=== PATIENT | male | born 1940 | race Caucasian/White ===

== ENCOUNTER 2017-04-12 00:27 | Day surgery (SDC) | payer MEDICARE, OTHER ==
[~2017-04-12] VITALS: Ht 182.9 cm; Wt 84.0 kg
[~2017-04-12 00:27] MED LIST: MULT1CAP33 PO
[2017-04-12] MEDS ORDERED: fentaNYL-PF 50 mCg/mL 2 mL Inj IVPUSH PRN (06:00)
[2017-04-12] MEDS ORDERED: 0.9% Sodium Chloride 1,000 ML IV SCH (06:00)
[2017-04-12] MEDS ORDERED: Sodium Chloride LOK Flush 10 mL Syringe IV PRN (06:00)
[2017-04-12 13:41] VITALS: BP 103/68; PULSE 71; RESP 16; O2SAT 99
[2017-04-12] MEDS ORDERED: TURM5000 MC (14:01)
[2017-04-12] MEDS ORDERED: LACT1CAP67 PO (14:01)
[2017-04-12] MEDS ORDERED: CHOL5000 PO (14:01)
[2017-04-12] MEDS ORDERED: ASCO500S2 PO (14:01)
[2017-04-12] MEDS ORDERED: CHON250C PO (14:01)
[2017-04-12] MEDS ORDERED: CYAN10008 PO (14:01)
[2017-04-12 15:22] VITALS: BP 121/73; PULSE 71; RESP 16; O2SAT 98
[2017-04-12 15:32] VITALS: BP 102/72; PULSE 66; RESP 16; O2SAT 98
[2017-04-12 15:42] VITALS: BP 116/64; PULSE 63; RESP 16; O2SAT 97
[2017-04-12 15:52] VITALS: BP 121/81; PULSE 69; RESP 16; O2SAT 98
--- NOTE | 2017-04-12 15:56 | ENDO ---
[address] [address] ENDOSCOPY PROCEDURE PATIENT: NOY RANDOLPH : 1940 MR#: [id number] ADMIT: 04/12/2017 JOB ID: [id number] DATE OF SERVICE: 04/12/2017 PRIMARY CARE PROVIDER: Jay Bhakta MD PROCEDURE: Esophagogastroduodenoscopy with biopsy and a flexible sigmoidoscopy (failed colonoscopy). INDICATIONS: A 76-year-old male with a history of GERD and diarrhea unexplained. He has a history of multiple adenomatous colon polyps and is way overdue for surveillance. I see the last colonoscopy in our system was [address] Duncan. EQUIPMENT: GIFH-180 and PCFH-180 AL SEDATION: 3 mg Versed, 75 mcg fentanyl. COMPLICATIONS: None identified. BOWEL PREPARATION: Distally quite adequate. PROCEDURE INFORMATION: After the risks and benefits were explained, written and verbal informed consent was obtained. The patient was brought into the endoscopy suite and placed into the left lateral decubitus position. Sedation was achieved as above. The scope was introduced into the mouth through the bite block, and advanced to the second portion of the duodenum. The scope was slowly withdrawn to carefully examine the mucosa for any defects or lesions. Retroflexed views were accomplished in the stomach. The stomach was decompressed. The scope removed from the patient who tolerated the procedure well. The patient was then turned around. A digital rectal examination accomplished. Mild internal hemorrhoids noted. No other significant pathology. The scope was introduced into the rectum and advanced under direct visualization to the level of the sigmoid. We got about 25 cm of scope introduced. The patient had an exceptionally sharp corner that could not be overcome in spite of multiple applications of patient pressure. We additionally tried the patient in the supine, prone and even in the right lateral decubitus position. We aborted based on the difficulties encountered at this depth simply to avoid unnecessary pressure on the wall and put the patient at risk for a perforation. The scope was withdrawn, the colon decompressed, the scope removed from the patient who tolerated all of this quite well. ENDOSCOPIC DIAGNOSES: 1. Duodenum: Visually normal from the bulb through to the second portion. Random biopsy was taken considering the reported history of diarrhea. 2. Stomach: No ulcers, no mass lesions. No outlet obstruction. There were a few benign diminutive gastric polyps. One of these was sampled for histopathology and exclusion of H. pylori. Otherwise, retroflexed views of the lower esophageal sphincter were unremarkable. 3. Esophagus: The squamocolumnar junction correlated with the top of the gastric folds. The gastroesophageal junction was at 42 cm from the incisors. No acute erosive changes, no strictures, no mass lesions. 4. Colon: Incredibly challenging navigation through the sigmoid. We could not pass the 25 cm stefanie. There was some diverticulosis evident. I did not appreciate any colitis or proctitis in the distal segment nor did I see any significant polyps or mass lesions through this area. IMPRESSION: 1. Diminutive gastric polyps. 2. Otherwise visually unremarkable esophagogastroduodenoscopy. 3. Diverticulosis. 4. Failed cecal navigation. RECOMMENDATIONS: 1. Await histopathology. 2. The patient is offered a virtual colonography to complete the colon cancer screening experience. If there are significant polyps encountered at virtual then the patient would likely need to be referred for a balloon assisted endoscopy down in [place].
--- NOTE | 2017-04-14 17:07 | PATH ---
SURGICAL PATHOLOGY Attending Physician:Estrada George CASE STATUS: Signed Out PATIENT NAME: NOY RANDOLPH PID: [id number] : 1940 DATE COLLECTED:04/12/2017 00:00 SPECIMEN: 1: Duodenum, Biopsy 2: Duodenum, Biopsy 3: Stomach, Polyp, Biopsy CLINICAL HISTORY: 1). DUODENUM BIOPSY 2). DUODENUM BULB BIOPSY 3). GASTRIC POLYP FINAL DIAGNOSIS: 1.DUODENUM, BIOPSY: DUODENAL MUCOSA WITH NO DIAGNOSTIC ABNORMALITY. Negative for active inflammation, features of sprue, dysplasia, and malignancy. 2.DUODENAL BULB, BIOPSY: DUODENAL MUCOSA WITH FOVEOLAR METAPLASIA. Negative for active inflammation, features of sprue, dysplasia, and malignancy. 3.GASTRIC POLYP, BIOPSY: FUNDIC GLAND POLYP. Negative for Helicobacter organisms. Negative for intestinal metaplasia. Negative for dysplasia and malignancy. ICD10 R19.7 GROSS DESCRIPTION: Received three formalin-filled containers, each labeled with the patient' s name. 1. Received in formalin, labeled with the patient' s name and "duodenum biopsy", is one fragment of calzada, soft tissue measuring 0.5 x 0.2 x 0.1 cm. The fragment is totally submitted in cassette 1A. 2. Received in formalin, labeled with the patient' s name and "duodenum bulb biopsy", is one fragment of calzada, soft tissue measuring 0.2 x 0.1 x 0.1 cm. The fragment is totally submitted in cassette 2A. 3. Received in formalin, labeled with the patient' s name and "gastric polyp", is one fragment of calzada, soft tissue measuring 0.3 x 0.2 x 0.2 cm. The fragment is totally submitted in cassette 3A. [id number]) MICRO DESCRIPTION: See diagnosis. ICD-9 CODES: CPT CODES: 1: 06238 2: 53459 3: 54159 Electronically Signed Out Tank Ng MD, Ph.D. [facility] [address], [place] [address] Technical component performed at [facility], [address], [address]
== END 2017-04-12 23:59 | disposition home or self-care (01) ==
LOC: END 00:27
PROVIDERS: ATTEND Internal Medicine Gastroenterology
DX: Z12.11 Encounter for screening for malignant neoplasm of colon (principal); Z86.010 Personal history of colon polyps; Z80.0 Family history of malignant neoplasm of digestive organs; K57.30 Diverticulosis of large intestine without perforation or abscess without bleeding; K31.7 Polyp of stomach and duodenum; R19.7 Diarrhea, unspecified; R10.32 Left lower quadrant pain; K21.9 Gastro-esophageal reflux disease without esophagitis; Z79.82 Long term (current) use of aspirin
CPT/HCPCS: 43239; 99153; G0105; G0500; J2250; J3010; J7030